=== PATIENT | male | born 1970 | race Caucasian/White ===

== ENCOUNTER 2022-06-30 15:47 | Emergency (ER) | payer SELFPAY ==
[~2022-06-30] VITALS: Ht 188 cm; Wt 104.3 kg
--- NOTE | 2022-06-30 16:40 | NUR ---
seen and examined by
--- NOTE | 2022-06-30 17:07 | NUR ---
cxr in process
[2022-06-30] MEDS ORDERED: HYDROMORPHONE 1 MG/1 ML DISP.SYRIN IV ONE ×2 (17:15→19:15)
[2022-06-30] MEDS ORDERED: IV NORMAL SALINE 1000 ML BAG IV ONE (17:15)
[2022-06-30] MEDS ORDERED: ONDANSETRON 4 MG/2 ML VIAL IV ONE (17:15)
[2022-06-30] MEDS ORDERED: ONDANSETRON 4 MG/2 ML VIAL ONE (17:46)
[2022-06-30] MEDS ORDERED: HYDROMORPHONE 1 MG/1 ML DISP.SYRIN ONE (17:47)
[2022-06-30 17:50] LABS: HEMATOCRIT 42.2 % (36.7-47.1); MEAN CORPUSCULAR VOLUME 94.5 fL (73.0-96.2); PLATELET COUNT (AUTO) 156 K/uL (152-348)
[2022-06-30 17:58] LABS: CARBON DIOXIDE 26 mmol/L (21-32); CHLORIDE 100 mmol/L (98-107); CREATININE 0.9 mg/dL (0.6-1.3); GLUCOSE 110 mg/dL (74-106); POTASSIUM 3.8 mmol/L (3.5-5.1); UREA NITROGEN, BLOOD 24 mg/dL (7-18)
[2022-06-30 18:11] LABS: ALANINE AMINOTRANSFERASE 36 U/L (16-63); ALKALINE PHOSPHATASE 70 U/L (50-136); ASPARTATE AMINOTRANSFERASE 38 U/L (15-37); BILIRUBIN,DIRECT 0.1 mg/dL (0.0-0.2); BILIRUBIN,TOTAL 0.5 mg/dL (0.2-1.0); TOTAL PROTEIN, SERUM 8.5 g/dL (6.4-8.2)
--- NOTE | 2022-06-30 18:50 | NUR ---
Called [facility] ER for higher level of care transfer, spoke with charge nurse Jam. Requested information faxed to [phone] as requested.
--- NOTE | 2022-06-30 18:55 | NUR ---
Received telephone call from Jam from [facility] ER who stated will accept the transfer.
[2022-06-30] MEDS ORDERED: KETOROLAC TROMETHAMINE 30 MG INJ IVP ONE (19:15)
[2022-06-30] MEDS ORDERED: PROCHLORPERAZINE EDISYLATE 10 MG/2 ML VIAL IV ONE (19:15)
--- NOTE | 2022-06-30 19:15 | NUR ---
REPORT RECEIVED FROM MARK PAREKH.
--- NOTE | 2022-06-30 19:33 | NUR ---
Called [facility] for ALS transport. ETA is 2200.
[2022-06-30] MEDS ORDERED: PROCHLORPERAZINE EDISYLATE 10 MG/2 ML VIAL ONE (19:35)
[2022-06-30] MEDS ORDERED: KETOROLAC TROMETHAMINE 30 MG INJ ONE (19:36)
[2022-06-30] MEDS ORDERED: HYDROMORPHONE 2 MG/1 ML DISP.SYRIN ONE (19:36)
--- NOTE | 2022-06-30 19:59 | NUR ---
Called [facility] ambulance ETA is 45mins
--- NOTE | 2022-06-30 20:21 | NUR ---
PT SLEEPING, EASILY AROUSABLE, ON MONITOR WITH VSS WITH L RIB PAIN 4 WITH NO N/V. PT ON NON REBREATHER 12 L/O2 WITH O2 SAT - 100%.
--- NOTE | 2022-06-30 20:49 | NUR ---
Patient Tranfers to outside Facility Physician:DR OTERO Location:[facility] HERE TO TRANSFER PT TO [facility]. PT STABLE, VSS, BG -138, PT'S PAIN 3-4, SATING 100% ON 15 L/ O2 VIA NON REBREATHER. REPORT GIVEN TO EMT'S.
== END 2022-06-30 20:50 | disposition short-term general hospital (02) ==
LOC: ER 15:47
DX: S22.41XA Multiple fractures of ribs, right side, initial encounter for closed fracture (principal); S27.0XXA Traumatic pneumothorax, initial encounter; Z20.822 Contact with and (suspected) exposure to COVID-19; V19.9XXA Pedal cyclist (driver) (passenger) injured in unspecified traffic accident, initial encounter; Y93.89 Activity, other specified; Y92.89 Other specified places as the place of occurrence of the external cause; Y99.8 Other external cause status
CPT/HCPCS: 99291; 71250; 96374; 96375; 87426; 80076; 80048; 83880; 85025; 85730; 86850; 86900; 86901; 84484; 36415; 93005; 71111; 73030; 74176; J1885; J2405; J0780; J1170 ×2; J7040; A4663

== ENCOUNTER 2023-02-10 21:47 | Emergency (ER) | payer MEDICAID, OTHER ==
[~2023-02-10] VITALS: Ht 188 cm; Wt 106.6 kg
[2023-02-11 00:28] LABS: *BILIRUBIN,URIN NEGATIVE (NEGATIVE); *BLOOD, URINE NEGATIVE (NEGATIVE); *CLARITY,URINE CLEAR (CLEAR); *COLOR,URINE YELLOW (YELLOW); *KETONES,URINE NEGATIVE (NEGATIVE); *PROTEIN,URINE NEGATIVE (NEGATIVE); *UROBILINOGEN,URINE 0.2 E.U./dl (NORMAL); BASOPHILS % (AUTO) 0.5 % (0.0-2.0); EOSINOPHILS # (AUTO) 0.4 K/uL (0.0-0.7); EOSINOPHILS % (AUTO) 9.4 % (0.0-7.0); HEMATOCRIT 42.9 % (36.7-47.1); HEMOGLOBIN 14.4 g/dL (12.5-16.3); LEUKOCYTE ESTERASE ,URINE NEGATIVE (NEGATIVE); LYMPHOCYTES # (AUTO) 1.6 K/uL (0.8-4.8); LYMPHOCYTES % (AUTO) 43.1 % (20.5-51.5); MEAN CORPUSCULAR HEMOGLOBIN 31.9 uug (23.8-33.4); MEAN CORPUSCULAR HGB CONC 34 g/dL (32.5-36.3); MEAN CORPUSCULAR VOLUME 95.1 fL (73.0-96.2); MONOCYTES # (AUTO) 0.3 K/uL (0.1-1.30); MONOCYTES % (AUTO) 8.3 % (0.0-11.0); NEUTROPHILS # (AUTO) 1.5 K/uL (1.8-8.9); NEUTROPHILS % (AUTO) 38.7 % (38.5-71.5); NITRITE, URINE NEGATIVE (NEGATIVE); PLATELET COUNT (AUTO) 162 K/uL (152-348); RED BLOOD CELL COUNT(AUTO) 4.51 MIL/uL (4.06-5.63); RED CELL DISTRIBUTION WIDTH 14.1 % (12.1-16.2); UGLUCOSE NEGATIVE (NEGATIVE); WHITE BLOOD COUNT (AUTO) 3.8 K/uL (3.6-10.2)
[2023-02-11 00:31] LABS: DIFFERENTIAL COMMENT 1
[2023-02-11 00:39] LABS: CALCIUM 9.4 mg/dL (8.5-10.1); CREATININE 0.8 mg/dL (0.6-1.3); POTASSIUM 4.2 mmol/L (3.5-5.1)
[2023-02-11] MEDS: IV NORMAL SALINE 1000 ML BAG IV ONE (00:40)
[2023-02-11 00:46] LABS: ALBUMIN 3.8 g/dL (3.4-5.0); BILIRUBIN,DIRECT 0.1 mg/dL (0.0-0.2); BILIRUBIN,TOTAL 0.6 mg/dL (0.2-1.0); TOTAL PROTEIN, SERUM 8.2 g/dL (6.4-8.2)
[2023-02-11] MEDS ORDERED: LOPE2TAB25 PO (01:50)
[2023-02-11 03:19] VITALS: BP 136/86; O2SAT 98
== END 2023-02-11 01:55 | disposition home or self-care (01) ==
LOC: ER 21:49
DX: E86.0 Dehydration (principal); R19.7 Diarrhea, unspecified; Z79.899 Other long term (current) drug therapy
CPT/HCPCS: 36415; 83690; 85025; A4606; A4663; J7040